=== PATIENT | male | born 1980 | race Hispanic/Latino ===

== ENCOUNTER 2022-11-23 09:54 | Emergency (ER) | payer SELFPAY ==
[2022-11-23] MEDS ORDERED: NA CHLORIDE 0.9% 1,000 ML ONE (10:13)
[2022-11-23] MEDS ORDERED: ONDANSETRON 4 MG/2 ML VIAL ONE (10:13)
[2022-11-23] MEDS ORDERED: KETOROLAC 30 MG/ML INJ ONE (10:13)
[2022-11-23 10:28] LABS: Absolute Lymphocytes (CBC) 1.5 K/uL (0.7-4.9); Hematocrit 45.9 % (39.6-49.0); Lymphocytes % 10.4 % (15.3-44.8); MPV 9.3 fL (7.6-11.3); RBC Red Blood Cell Count 5.16 M/uL (4.33-5.43)
--- NOTE | 2022-11-23 10:33 | RAD REPORT ---
EXAM DESCRIPTION: CT - Stone Protocol - 11/23/2022 10:14 am CLINICAL HISTORY: Abdominal pain. COMPARISON: None. TECHNIQUE: Computed axial tomography of the abdomen pelvis was obtained without oral or IV contrast. Lack of IV and oral contrast limits evaluation of solid organs, appendix, bowel, and vessels. Vann l reformatted images were obtained and reviewed. All CT scans are performed using dose optimization technique as appropriate and may include automated exposure control or mA/KV adjustment according to patient size. FINDINGS: Small left renal calculus. Mild left hydronephrosis. Left ureter dilated. 4 millimeter shaila culus distal left ureter. Right renal calculus is not present. No right ureteral calculus The liver, spleen, pancreas and adrenals appear grossly normal There is no evidence of diverticulitis. The appendix appears normal Small inguinal hernias Cholecystectomy IMPRESSION: 4 millimeter calculus left distal ureter resulting mild left hydronephrosis
[2022-11-23 10:40] LABS: Albumin 4.1 g/dL (3.4-5.0); Bilirubin Total 0.4 mg/dL (0.2-1.0); Potassium 3.9 mEq/L (3.5-5.1); Protein, Total 8.4 g/dL (6.4-8.2)
[2022-11-23] MEDS ORDERED: TAMSULOSIN 0.4 MG SR CAP ONE (11:01)
[2022-11-23] MEDS ORDERED: MAGNESIUM SULFATE 1 gm IVPB 1 GM/100 ML BAG IV ONE (11:02)
[2022-11-23 12:41] LABS: Specific Gravity 1.028 (1.005-1.030); Urine Bacteria None Seen /HPF (<20); Urine Bilirubin NEGATIVE (Negative); Urine Blood 2+ (Negative); Urine Clarity Clear (Clear); Urine Color Light-Yellow (Yellow); Urine Glucose TRACE (Negative); Urine Mucus Slight /HPF (None Seen); Urine Protein TRACE (Negative); Urine RBC >50 /HPF (None Seen); Urine Urobilinogen Normal (Normal); Urine pH 5.5 (5.0-7.0)
--- NOTE | 2022-11-23 12:46 | ER ---
Nurse's Notes [facility] Name: Jesus Copeland Age: 42 yrs Sex: Male : 1980 Arrival Date: 11/23/2022 Time: 09:55 Bed 14 Private MD: Diagnosis: Calculus of ureter Presentation: 11/23 10:04 Chief complaint: Patient states: L flank pain that radiates down towards L testicle x 2 ss hours. Coronavirus screen: Client denies travel out of the [place] in the last 14 days. Ebola Screen: Patient denies exposure to infectious person. Patient denies travel to an Ebola-affected area in the 21 days before illness onset. Initial Sepsis Screen: Does the patient meet any 2 criteria? No. Patient's initial sepsis screen is negative. Does the patient have a suspected source of infection? No. Patient's initial sepsis screen is negative. Risk Assessment: Do you want to hurt yourself or someone else? Patient reports no desire to harm self or others. Onset of symptoms was November 23, 2022. 10:04 Method Of Arrival: Ambulatory ss 10:04 Acuity: FARIHA 2 ss Triage Assessment: 11:14 General: Appears uncomfortable, Behavior is cooperative, restless. Pain: Complains of db pain in abdomen and left flank. GI: Reports lower abdominal pain. Historical: - Allergies: 10:06 No Known Allergies; ss - Home Meds: 10:06 None [Active]; ss - PMHx: 10:06 Kidney stone; ss - PSHx: 10:06 Cholecystectomy; ss - Immunization history:: Client reports receiving the 2nd dose of the Covid vaccine. - Social history:: Smoking status: Patient denies any tobacco usage or history of. Screenin:21 [facility] ED Fall Risk Assessment (Adult) History of falling in the last 3 months, db including since admission No falls in past 3 months (0 pts) Confusion or Disorientation No (0 pts) Intoxicated or Sedated No (0 pts) Impaired Gait No (0 pts) Mobility Assist Device Used No (0 pt) Altered Elimination No (0 pt) Score/Fall Risk Level 0 - 2 = Low Risk Oriented to surroundings, Maintained a safe environment. Abuse screen: Denies threats or abuse. Denies injuries from another. Nutritional screening: No deficits noted. Tuberculosis screening: No symptoms or risk factors identified. Assessment: 10:20 Reassessment: Patient appears in no apparent distress at this time. Patient and/or db family updated on plan of care and expected duration. Pain level reassessed. Patient is alert, oriented x 3, equal unlabored respirations, skin warm/dry/pink. patient returned from CT. 11:14 Reassessment: Patient states feeling better. General: Appears in no apparent distress. db comfortable, Behavior is calm, cooperative. Neuro: Level of Consciousness is awake, alert, obeys commands, Oriented to person, place, time, situation, Moves all extremities. Speech is normal. GI: Abdomen is flat, Reports lower abdominal pain. Vital Signs: 10:04 BP 190 / 114; Pulse 61; Resp 16; Temp 98.3; Pulse Ox 99% on R/A; Weight 90.72 kg; ss Height 5 ft. 5 in. ; Pain 10/10; 11:15 BP 163 / 101; Pulse 60; Resp 16; Pulse Ox 100% on R/A; db 13:00 BP 150 / 98; Pulse 75; Resp 16; Pulse Ox 99% on R/A; db 10:04 Body Mass Index 33.28 (90.72 kg, 165.1 cm) ss 10:04 Pain Scale: Adult ss ED Course: 09:55 Patient arrived in ED. am2 09:55 Karley Delgado FNP-C is [facility]. kb 09:55 Rafat Erazo MD is Attending Physician. kb 10:06 Triage completed. ss 10:06 Arm band placed on right wrist. ss 10:07 Maine aJckman, CATRACHO is Primary Nurse. db 10:10 Initial lab(s) drawn, by me, sent to lab. Inserted saline lock: 20 gauge in right em1 antecubital area, using aseptic technique. Blood collected. 10:16 CT Stone Protocol In Process Unspecified. EDMS 11:15 Patient has correct armband on for positive identification. Placed in gown. Bed in low db position. Call light in reach. Side rails up X 1. Pulse ox on. NIBP on. Warm blanket given. 12:45 Sukhwinder Martínez MD is Referral Physician. kb 13:09 No provider procedures requiring assistance completed. IV discontinued, intact, db bleeding controlled, No redness/swelling at site. Administered Medications: 10:10 Drug: NS 0.9% IV 1000 ml Route: IV; Rate: 1 bolus; Site: right antecubital; db 11:13 Follow up: Response: No adverse reaction; IV Status: Completed infusion; IV Intake: db 1000ml 10:11 Drug: TORadol - Ketorolac IVP 15 mg Route: IVP; Site: right antecubital; db 11:14 Follow up: Response: No adverse reaction; Pain is decreased db 10:11 Drug: Ondansetron IVP 4 mg Route: IVP; Site: right antecubital; db 11:13 Follow up: Response: No adverse reaction db 11:05 Drug: Flomax PO 0.4 mg Route: PO; db 13:11 Follow up: Response: No adverse reaction db 11:10 Drug: Magnesium Sulfate IVPB 1 grams Route: IVPB; Infused Over: 1 hrs; Site: right db antecubital; 13:11 Follow up: Response: No adverse reaction; IV Status: Completed infusion; IV Intake: db 100ml Medication: 13:09 VIS not applicable for this client. db Intake: 11:13 IV: 1000ml; Total: 1000ml. db 13:11 IV: 100ml; Total: 1100ml. db Outcome: 12:45 Discharge ordered by MD. kb 13:00 Discharged to home ambulatory, with family. db 13:00 Condition: stable 13:00 Discharge instructions given to patient, family, Instructed on discharge instructions, follow up and referral plans. Prescriptions given X x 5 13:18 Patient left the ED. ap3 Signatures: Dispatcher [employer] EDNE Karley Delgado, SENIOR SOFTWARE PROJECT MANAGER-C SENIOR SOFTWARE PROJECT MANAGER-Yeison Soto em1 Radha Barkley RN RN ss Sarahi Johns amSarahi Monatño RN RN ap3 Maine Jackman RN RN db Corrections: (The following items were deleted from the chart) 10:06 10:06 PMHx: None; ss merlyn
--- NOTE | 2022-11-23 12:46 | EDPHYS ---
Physician Documentation [facility] Name: Jesus Copeland Age: 42 yrs Sex: Male : 1980 Arrival Date: 11/23/2022 Time: 09:55 Bed 14 Private MD: ED Physician Rafat Erazo HPI: 11/23 10:25 This 42 yrs old Male presents to ER via Ambulatory with complaints of Flank kb Pain, Nausea/Vomiting. 10:25 The patient complains of pain in the left flank. The pain radiates to the left lower kb quadrant. Onset: The symptoms/episode began/occurred 2 hour(s) ago. Modifying factors: The symptoms are alleviated by nothing. the symptoms are aggravated by nothing. Associated signs and symptoms: Pertinent positives: nausea, vomiting, difficulty urinating, Pertinent negatives: diarrhea, dizziness, dysuria, fever, urinary frequency, headache, pain radiating to the lower extremities. Severity of pain: At its worst the pain was moderate in the emergency department the pain is unchanged. The patient has not experienced similar symptoms in the past. The patient has not recently seen a physician. Historical: - Allergies: 10:06 No Known Allergies; ss - Home Meds: 10:06 None [Active]; ss - PMHx: 10:06 Kidney stone; ss - PSHx: 10:06 Cholecystectomy; ss - Immunization history:: Client reports receiving the 2nd dose of the Covid vaccine. - Social history:: Smoking status: Patient denies any tobacco usage or history of. ROS: 10:13 Constitutional: Negative for fever, chills, and weight loss. kb 10:13 Abdomen/GI: Positive for nausea and vomiting, Negative for abdominal pain. 10:13 Back: Positive for flank pain, on the left. 10:13 : Positive for flank pain, difficulty urinating. 10:14 All other systems are negative. kb Exam: 10:23 Constitutional: This is a well developed, well nourished patient who is awake, alert, kb and in no acute distress. Head/Face: Normocephalic, atraumatic. ENT: Moist Mucous membranes Cardiovascular: Regular rate and rhythm with a normal S1 and S2. No gallops, murmurs, or rubs. No pulse deficits. Respiratory: Respirations even and unlabored. No increased work of breathing. Talking in full sentences Abdomen/GI: Soft, non-tender. No distention Skin: Warm, dry with normal turgor. Normal color. MS/ Extremity: Pulses equal, no cyanosis. Neurovascular intact. Full, normal range of motion. Neuro: Awake and alert, GCS 15, oriented to person, place, time, and situation. Moves all extremities. Normal gait. 10:23 Back: pain, that is moderate, ROM is normal, normal spinal alignment noted, CVA tenderness, that is mild, is noted on the left. Vital Signs: 10:04 BP 190 / 114; Pulse 61; Resp 16; Temp 98.3; Pulse Ox 99% on R/A; Weight 90.72 kg; ss Height 5 ft. 5 in. ; Pain 10/10; 11:15 BP 163 / 101; Pulse 60; Resp 16; Pulse Ox 100% on R/A; db 13:00 BP 150 / 98; Pulse 75; Resp 16; Pulse Ox 99% on R/A; db 10:04 Body Mass Index 33.28 (90.72 kg, 165.1 cm) ss 10:04 Pain Scale: Adult ss MDM: 09:55 Patient medically screened. kb 10:14 Data reviewed: vital signs, nurses notes. kb 10:24 Differential diagnosis: nephrolithiasis, pyelonephritis, UTI, diverticulitis. kb 12:26 ED course: Pain is controlled, awaiting urinalysis. kb 12:44 Counseling: I had a detailed discussion with the patient and/or guardian regarding: the kb historical points, exam findings, and any diagnostic results supporting the discharge/admit diagnosis, lab results, radiology results, the need for outpatient follow up, a family practitioner, a urologist, to return to the emergency department if symptoms worsen or persist or if there are any questions or concerns that arise at home. 11/23 10:00 Order name: CBC with Diff; Complete Time: 10:34 kb 11/23 10:00 Order name: CMP; Complete Time: 10:42 kb 11/23 10:00 Order name: Lipase; Complete Time: 10:42 kb 11/23 10:00 Order name: Urinalysis w/ reflexes; Complete Time: 12:44 kb 11/23 10:00 Order name: CT Stone Protocol; Complete Time: 10:34 kb 11/23 10:00 Order name: IV Saline Lock; Complete Time: 10:10 kb 11/23 10:00 Order name: Labs collected and sent; Complete Time: 10:10 kb Administered Medications: 10:10 Drug: NS 0.9% IV 1000 ml Route: IV; Rate: 1 bolus; Site: right antecubital; db 11:13 Follow up: Response: No adverse reaction; IV Status: Completed infusion; IV Intake: db 1000ml 10:11 Drug: TORadol - Ketorolac IVP 15 mg Route: IVP; Site: right antecubital; db 11:14 Follow up: Response: No adverse reaction; Pain is decreased db 10:11 Drug: Ondansetron IVP 4 mg Route: IVP; Site: right antecubital; db 11:13 Follow up: Response: No adverse reaction db 11:05 Drug: Flomax PO 0.4 mg Route: PO; db 13:11 Follow up: Response: No adverse reaction db 11:10 Drug: Magnesium Sulfate IVPB 1 grams Route: IVPB; Infused Over: 1 hrs; Site: right db antecubital; 13:11 Follow up: Response: No adverse reaction; IV Status: Completed infusion; IV Intake: db 100ml Disposition: 17:23 Co-signature as Attending Physician, Rafat Erazo MD I reviewed the patient's care rt provided by the Advanced Practice Provider and agree with the diagnosis and treatment plan. Disposition Summary: 11/23/22 12:45 Discharge Ordered Location: Home kb Condition: Stable kb Diagnosis - Calculus of ureter kb Followup: kb - With: Emergency Department - When: As needed - Reason: Worsening of condition Followup: kb - With: Sukhwinder Martínez MD - When: 2 - 3 days - Reason: Recheck today's complaints Discharge Instructions: - Discharge Summary Sheet kb - Kidney Stones, [id number] kb - Dietary Guidelines to Help Prevent Kidney Stones kb Forms: - Medication Reconciliation Form kb - Thank You Letter kb - Antibiotic Education kb - Prescription Opioid Use kb Prescriptions: - Flomax 0.4 mg Oral capsule - take 1 capsule by ORAL route daily; 10 capsule; Refills: 0, Product Selection kb Permitted - Augmentin 875-125 mg Oral Tablet - take 1 tablet by ORAL route every 12 hours for 10 days; 20 tablet; Refills: 0, kb Product Selection Permitted - Zofran 4 mg Oral Tablet - take 1 tablet by ORAL route every 6 hours As needed; 20 tablet; Refills: 0, kb Product Selection Permitted - Diclofenac Sodium 75 mg Oral tablet,delayed release (DR/EC) - take 1 tablet by ORAL route 2 times per day As needed; 30 tablet; Refills: 0, kb Product Selection Permitted - Tramadol 50 mg Oral Tablet - take 1 tablet by ORAL route every 8 hours as needed; 12 tablet; Refills: 0, kb Product Selection Permitted Signatures: Dispatcher [employer] EDKarley Dumont, Radha Sarmiento RN RN ss Maine Jackman RN RN db Rafat Erazo MD MD rt Corrections: (The following items were deleted from the chart) 10:06 10:06 PMHx: None; [facility] 10:16 10:13 : Positive for flank pain, kb kb
[2022-11-23 13:32] VITALS: BP 150/98; TEMP 98.3; O2SAT 99
== END 2022-11-23 13:18 | disposition home or self-care (01) ==
LOC: ER 09:54
DX: N20.1 Calculus of ureter (principal); Z87.442 Personal history of urinary calculi
CPT/HCPCS: 36415; 74176; 76377; 80053; 81001; 83690; 85025; J2405; J3475; J7030